=== PATIENT | female | born 1945 | race Asian ===

== ENCOUNTER 2016-07-14 10:57 | Inpatient (IN) | payer OTHER ==
[~2016-07-14] VITALS: Ht 165.1 cm; Wt 74.0 kg
[~2016-07-14 10:57] MED LIST: AMI200 PO; CARV25TA55 PO; COU2 PO; FURO-149 PO; FURO40SO5 PO; GLIM1TAB PO; GLIM1TAB2 PO; GLU500 PO; GLUXR500 PO; HYDR-1189 PO; LOVA10TA55 PO; MONT10TA22 PO; MONT10TA25 PO; VALS80TA2 PO; WARF1TAB2 PO; WARF2TAB2 PO
[2016-07-14 11:30] VITALS: BP 111/58; PULSE 72; RESP 16; TEMP 97; O2SAT 98
[2016-07-14 12:37] LABS: BASOPHILS # (AUTO) 0.1 K/uL (0.0-0.2); BASOPHILS % (AUTO) 0.7 % (0.0-2.0); EOSINOPHILS # (AUTO) 0.3 K/uL (0.0-0.4); HEMATOCRIT 34.4 % (36-48); HEMOGLOBIN 11.2 g/dL (12.0-16.0); LYMPHOCYTES # (AUTO) 1.6 K/uL (1.0-5.5); MEAN CORPUSCULAR HEMOGLOBIN 31 pg (27-31); MEAN CORPUSCULAR HGB CONC 33 % (32-36); MEAN CORPUSCULAR VOLUME 93 fL (79.0-98.0); MONOCYTES # (AUTO) 0.7 K/uL (0.0-1.0); MONOCYTES % (AUTO) 8.1 % (1.7-9.3); NEUTROPHILS % (AUTO) 70.2 % (40.0-70.0); PLATELET COUNT (AUTO) 249 K/uL (130-430); RED BLOOD CELL COUNT(AUTO) 3.69 MIL/uL (4.2-6.2); WHITE BLOOD COUNT (AUTO) 8.7 K/uL (4.8-10.8)
[2016-07-14 12:41] LABS: ANION GAP 6 (5-15); CHLORIDE 103 mmol/L (98-107); CREATININE 1.13 mg/dL (0.55-1.30); GLUCOSE 122 mg/dL (70-99); POTASSIUM 4.6 mmol/L (3.5-5.1); SODIUM SERUM 139 mmol/L (136-145); UREA NITROGEN, BLOOD 18 mg/dL (8-21)
[2016-07-14 12:46] LABS: ALANINE AMINOTRANSFERASE 63 U/L (12-78); ASPARTATE AMINOTRANSFERASE 46 U/L (10-37); TOTAL BILIRUBIN 0.3 mg/dL (0.0-1.0); TOTAL PROTEIN, SERUM 8.2 g/dL (6.4-8.3)
--- NOTE | 2016-07-14 12:50 | NUR ---
BROUGHT BACK TO BED #4 REPORT GIVEN TO MIYA
--- NOTE | 2016-07-14 13:00 | NUR ---
PT PRESENTS TO ED C/O NONHEALING WOUND LLE.PT H/O DM,HTN,AND AFIB.PT REPORTS WOUND CARE NOT EFFECTIVE.WOUND HAS YELLOW SLOUGH W/SLIGHT MACERATION AROUND EDGES,FOUL ORDOR NOTED.AFFECTED ARE COOL TO TOUCH WOUND APPROXIMATELY 13CM X 11CM. PT AFEBRILE,NO ACUTE DISTRESS NOTED.
--- NOTE | 2016-07-14 13:20 | NUR ---
SARAH EMBOSSING MACHINE OPERATOR HELPER AT BEDSIDE
--- NOTE | 2016-07-14 15:30 | NUR ---
# 22 gauge angiocath placed to L HAND. Use of asceptic technique. Opsite placed over site. Blood return noted. Flushed with 10 cc of normal saline. No evidence of infiltration noted. Patient tolerated well.
[2016-07-14] MEDS ORDERED: NS 500 ML IV SCH (15:33)
[2016-07-14] MEDS ORDERED: VANCOMYCIN HCL 1 MG in D5W 250 ML IV ONE (15:45)
[2016-07-14] MEDS ORDERED: MORPHINE 4 MG/ML INJ. SYRINGE IVP ONE (15:45)
[2016-07-14] MEDS ORDERED: PIPERACILLIN/TAZO 3.375 GM in NS 50 ML IV ONE (15:45)
[2016-07-14] MEDS ORDERED: ONDANSETRON HCL 4 MG/2 ML VIAL IVP ONE (15:45)
[2016-07-14] MEDS ORDERED: PIPERACILLIN/TAZOBACTAM 3.375 GM/VIAL (ZOSYN) IV ONE (15:59)
[2016-07-14] MEDS ORDERED: DIPH-TET-PERTUS Vaccine 0.5 ML VIAL (ADACEL) I.M. ONE (16:00)
[2016-07-14] MEDS ORDERED: VANCOMYCIN HCL 1000 MG/VIAL IV ONE (16:00)
--- NOTE | 2016-07-14 16:00 | NUR ---
Medication reconciliation completed with information provided by MIYA COE. Any prior medication reconciliation on file was reviewed and corrected.
--- NOTE | 2016-07-14 16:30 | NUR ---
PT MEDICATED PER ORDER.PT TOLERATED WELL.
[2016-07-14 16:41] LABS: PROTHROMBIN TIME 40.4 SECS (9.5-12.5)
[2016-07-14 16:42] LABS: INR 3.6 (0.8-1.2)
--- NOTE | 2016-07-14 17:00 | NUR ---
PT TOLERATED MEDICATED WELL.
[2016-07-14] MEDS ORDERED: ACETAMINOPHEN 325 MG TABLET PO PRN (17:45)
[2016-07-14] MEDS ORDERED: ONDANSETRON HCL 4 MG/2 ML VIAL IVP PRN (17:45)
[2016-07-14] MEDS ORDERED: VANCOMYCIN HCL 1,000 MG in NS 250 ML IV SCH (18:00)
--- NOTE | 2016-07-14 18:39 | NUR ---
ADMISSION NOTE Received patient from ER via gurney. Patient admitted with diagnosis of cellulitis. Patient is awake, alert, oriented X4. Patient oriented to hospital room, call light, toileting, pain management and safety-teach back done. Call light within reach.
--- NOTE | 2016-07-14 18:40 | NUR ---
Patient will be admitted to care of . Admitted to Med/Surg unit. Will go to room 119a. Summary report printed. Report given to Admission RN.
[2016-07-14 19:00] VITALS: BP 138/76; PULSE 61; RESP 16; TEMP 97.8; O2SAT 98
[2016-07-14 19:09] VITALS: BP 138/74; PULSE 61; RESP 18; TEMP 97.8; O2SAT 100
[2016-07-14 20:00] VITALS: BP 138/74; PULSE 61; RESP 18; TEMP 97.8; O2SAT 98
--- NOTE | 2016-07-14 20:41 | NUR ---
CONSULTATION PAGED REASON FOR CONSULTATION:ANTIBIOTICS MANAGEMENT WAS CONSULT CALLED?Y PERSON WHO WAS NOTIFIED:VARSHA CONSULTING PHYSICIAN:SYLVIA WEI PRESS DEPARTMENT MANAGER SPECIALTY:INFECTIOUS DISEASE PRESS DEPARTMENT MANAGER PHONE NUMBER:[phone]
[2016-07-14] MEDS ORDERED: *LOVENOX 1MG/KG Q12H/PHARMACY XX ONE (20:45)
--- NOTE | 2016-07-14 20:45 | NUR ---
CONSULTATION PAGED REASON FOR CONSULTATION:LEFT LEG WOUND EVAL WAS CONSULT CALLED?Y PERSON WHO WAS NOTIFIED:VARSHA CONSULTING PHYSICIAN:CARMEN SAUER (DAFNE BEAULIEU SCREEN REPAIRER CRUSHER) AIRLINE TICKET AGENT SPECIALTY:ORTHO AIRLINE TICKET AGENT PHONE NUMBER:[phone]
[2016-07-14] MEDS: ENOXAPARIN SODIUM 80 MG/0.8 ML SYRINGE SUBCUT SCH (21:00)
[2016-07-14] MEDS: CARVEDILOL 25 MG TABLET (COREG) PO SCH (21:49)
[2016-07-14] MEDS: CEFEPIME 2 GM in D5W 100 ML IV SCH (21:49)
[2016-07-14] MEDS: HYDROcodone/ACETAMIN 5-325 MG TAB (NORCO/ VICODIN) PO PRN (21:53)
--- NOTE | 2016-07-14 22:35 | NUR ---
MD RAO CALLED [facility] AT [phone]YASHAR MADDOX BEHZAD NUMERICAL CONTROL MACHINE OPERATOR.
[2016-07-15] VITALS: BP 95/50; PULSE 56; RESP 17; TEMP 97.3; O2SAT 96
[2016-07-15] MEDS: HYDROcodone/ACETAMIN 5-325 MG TAB (NORCO/ VICODIN) PO PRN ×2 (03:04→20:20)
[2016-07-15] MEDS: DIPHENHYDRAMINE HCL 25 MG CAPSULE PO PRN (03:08)
[2016-07-15 04:17] VITALS: BP 93/47; PULSE 58; RESP 17; TEMP 97.8; O2SAT 97
--- NOTE | 2016-07-15 06:57 | NUR ---
pt.was recieved via er-dept.07/13/16.pt.presents wound:lt.leg:lower region;daugherty.i ave pixed the wound,cleansed applied dsg i have administered pain medication;norco;1 tab x2.po.i have collected the mrsa swab;nares.i have administered the initial dose; vancomycin,cefipime..pt.presents diabetic hx;pt.stated she will submit to glucose assessment once in am:dr's order:achs.pt.' refused.pt.requested benadryl:itch,pt.is recieving coumadin @home.i telphoned [facility] i conveyed the pt's request. ordermoi bendryl:25mg po q-12hrs.hold lovenox:pt.refused.pt.dislikes shots.dr.nguyen aernas hold lovenox. pt.submitted to ct-scan leg:r/o abscess.i conveyed the results to zenobai armstrong,pt.requested t2 b attednde to in am:07/15/16 per .pt.is ambulatory.i assisted the pt.2 the restroom x3.
[2016-07-15 07:05] LABS: BASOPHILS % (AUTO) 0.7 % (0.0-2.0); EOSINOPHILS # (AUTO) 0.4 K/uL (0.0-0.4); EOSINOPHILS % (AUTO) 6.5 % (0.0-4.0); HEMATOCRIT 28.7 % (36-48); HEMOGLOBIN 9.2 g/dL (12.0-16.0); LYMPHOCYTES # (AUTO) 1.4 K/uL (1.0-5.5); MEAN CORPUSCULAR HEMOGLOBIN 30 pg (27-31); MEAN CORPUSCULAR HGB CONC 32 % (32-36); MEAN CORPUSCULAR VOLUME 94 fL (79.0-98.0); MONOCYTES # (AUTO) 0.8 K/uL (0.0-1.0); MONOCYTES % (AUTO) 11.5 % (1.7-9.3); NEUTROPHILS # (AUTO) 4.1 K/uL (1.8-7.7); NEUTROPHILS % (AUTO) 60.3 % (40.0-70.0); PLATELET COUNT (AUTO) 196 K/uL (130-430); RED BLOOD CELL COUNT(AUTO) 3.06 MIL/uL (4.2-6.2); RED CELL DISTRIBUTION WIDTH 14.8 % (9.0-15.0)
[2016-07-15 07:09] LABS: WHITE BLOOD COUNT (AUTO) 6.7 K/uL (4.8-10.8)
[2016-07-15 08:04] LABS: ERYTHROCYTE SEDIMENTATION RATE 87 MM/HR (0-20)
[2016-07-15 08:23] VITALS: BP 109/63; PULSE 58; RESP 16; TEMP 97.7; O2SAT 98
[2016-07-15 08:28] LABS: ANION GAP 13 (5-15); CALCIUM 8.5 mg/dL (8.4-11.0); CHLORIDE 101 mmol/L (98-107); CREATININE 2.47 mg/dL (0.55-1.30); GLUCOSE 167 mg/dL (70-99); PHOSPHORUS 4.1 mg/dL (2.7-4.5); POTASSIUM 4.8 mmol/L (3.5-5.1); SODIUM SERUM 137 mmol/L (136-145); UREA NITROGEN, BLOOD 21 mg/dL (8-21)
[2016-07-15] MEDS: ENOXAPARIN SODIUM 80 MG/0.8 ML SYRINGE SUBCUT SCH ×2 (09:00→20:18)
[2016-07-15] MEDS: CARVEDILOL 25 MG TABLET (COREG) PO SCH ×2 (09:00→20:21)
[2016-07-15] MEDS ORDERED: ENOXAPARIN SODIUM 40 MG/0.4 ML SYRINGE SUBCUT SCH (09:00)
[2016-07-15] MEDS: VALSARTAN 80 MG TABLET (DIOVAN) PO SCH (09:00)
[2016-07-15] MEDS: AMIODARONE HCL 200 MG TABLET PO SCH (09:00)
[2016-07-15] MEDS: CEFEPIME 2 GM in D5W 100 ML IV SCH ×2 (09:03→20:25)
[2016-07-15] MEDS: FUROSEMIDE 40 MG TABLET PO SCH (09:03)
[2016-07-15] MEDS: MONTELUKAST 10 MG TABLET PO SCH (09:04)
[2016-07-15 12:07] VITALS: BP 108/56; PULSE 62; RESP 16; TEMP 98.5; O2SAT 96
[2016-07-15] MEDS: FLUCONAZOLE 200 mg/ NS 100 ML IV SCH (12:16)
[2016-07-15] MEDS: LINEZOLID 300 ML IV SCH ×2 (14:46→21:33)
[2016-07-15 16:00] VITALS: BP 138/68; PULSE 69; RESP 18; TEMP 97.6; O2SAT 97
--- NOTE | 2016-07-15 19:04 | NUR ---
CONSULT: CONSULT FALLOWED UP WITH DR. FALL I SPOKE WITH MAXX KEE YESTERDAY DR. BROOKE LEOS CONVERTIBLE TOP INSTALLER BRIAN FALL IS CONVERTIBLE TOP INSTALLER CHARGE NURSE ASKED ME TO FALLOWED UP THIS CONSULT
[2016-07-15 19:30] VITALS: BP 138/71; PULSE 89; RESP 18; TEMP 97.7; O2SAT 95
--- NOTE | 2016-07-15 19:30 | NUR ---
Initial Notes Pt is A/Ox4. Pt is pleasant and cooperative. No acute distress or sob noted. POC discussed with pt, pt verbalized understanding. Dressing to left lower extremity noted, with some drainage. Pt stated that it is very painful, and does not want me to change dressing, will continue to monitor. VSS. IV to left hand #22g intact, saline lock. Safety precautions in place, side rails up x3, with bed in lowest, locked position, with bed alarm on. Pt educated subscription clerk light and correct back demonstration noted. All needs met at this time. Call light in reach. Will continue to monitor.
--- NOTE | 2016-07-15 20:15 | NUR ---
Spoke with MD Baird Spoke with MD Baird regarding consult ordered. Spoke with MD Baird regarding pt's wound to left lower leg, and informed MD ID consult, MD Araya had already seen pt and ordered antibiotics. MD Baird stated he would be in the morning tomorrow to see pt.
--- NOTE | 2016-07-15 20:20 | NUR ---
Pain Management Patient c/o pain 6/10 to left lower extremity where dressing is noted. Pt educated regarding pain management, and voiced understanding. Pt medicated with [place] 5-325mg PO 1 tab as ordered for moderate pain. No acute distress noted. Call light in reach. Will continue to monitor.
--- NOTE | 2016-07-15 20:22 | NUR ---
Medications/Pt refused dressing change Blood sugar checked, 143, no insulin coverage given per sliding scale. All scheduled medications administered as ordered. All questions answered. Spoke with pt and educated regarding changing dressing to her left lower leg, which noted to have some soilage, pt refused, stating "do not touch it, I dont want the dressing changed." Educated pt regarding wound care, but pt still refused. All needs met. Call light in hand. Will continue to monitor.
--- NOTE | 2016-07-15 20:35 | NUR ---
PAGED: I PAGED [facility] DR. POPE NYLON OPERATOR I SPOKE WITH AMANDO KEE
--- NOTE | 2016-07-15 20:44 | NUR ---
DR. POPE CALLED BACK @ [phone] HE SPOKE WITH NURSE IN CHARGE OF THIS PT
--- NOTE | 2016-07-15 20:50 | NUR ---
Spoke with MD Shah Pt requested that I call MD to ask regarding her Coumadin that she takes at home for her heart, as stated per pt. Pt stated she does not want to take "the shot" Lovenox. stated that Coumadin was held, and to encourage pt to take her Lovenox because it is a treatment dose. Also informed MD that pt takes metformin, Md stated that was held also. Educated pt regarding her medications held, and new medication Lovenox. Pt verbalized understanding.
--- NOTE | 2016-07-15 23:04 | NUR ---
Rounds Pt is sleeping comfortably at this time. No acute distress or sob noted. Safety measures in place. Call light in reach. Will continue to monitor closely.
[2016-07-16 00:46] VITALS: BP 96/50; PULSE 64; RESP 16; TEMP 97.4; O2SAT 94
--- NOTE | 2016-07-16 01:13 | NUR ---
Rounds Assisted pt to restroom at this time. No acute distress noted. Assisted pt back into bed safely. All needs met. Call light in reach. Will continue to monitor.
[2016-07-16 04:23] VITALS: BP 96/50; PULSE 56; RESP 16; TEMP 97.4; O2SAT 95
[2016-07-16] MEDS: HYDROcodone/ACETAMIN 5-325 MG TAB (NORCO/ VICODIN) PO PRN ×2 (05:22→16:01)
--- NOTE | 2016-07-16 05:22 | NUR ---
Pain Management/Dressing Pt c/o left lower leg pain to wound site, 11/15. Pt medicated with [place] 5-325mg PO 1 Tab for moderate pain. Pt refused dressing change to left lower leg, but agreed to have dressing reinforced. Pt in stable condition. IV intact. VSS. No acute distress or sob noted. Call light in reach. Will continue to monitor.
--- NOTE | 2016-07-16 06:29 | NUR ---
Closing Notes Pt is awake, alert and oriented. Pt in stable condition and denies any pain at this time. VSS. IV intact. All needs met throughout shift. Will endorse care to am nurse. Call light in hand. Will continue to monitor.
[2016-07-16 06:44] LABS: BASOPHILS # (AUTO) 0.1 K/uL (0.0-0.2); BASOPHILS % (AUTO) 0.9 % (0.0-2.0); EOSINOPHILS # (AUTO) 0.4 K/uL (0.0-0.4); EOSINOPHILS % (AUTO) 6.6 % (0.0-4.0); HEMATOCRIT 30.2 % (36-48); HEMOGLOBIN 9.9 g/dL (12.0-16.0); LYMPHOCYTES # (AUTO) 1.6 K/uL (1.0-5.5); LYMPHOCYTES % (AUTO) 25.4 % (20.5-51.5); MEAN CORPUSCULAR HEMOGLOBIN 31 pg (27-31); MEAN CORPUSCULAR HGB CONC 33 % (32-36); MEAN CORPUSCULAR VOLUME 94 fL (79.0-98.0); MONOCYTES # (AUTO) 0.8 K/uL (0.0-1.0); MONOCYTES % (AUTO) 12.2 % (1.7-9.3); NEUTROPHILS # (AUTO) 3.6 K/uL (1.8-7.7); NEUTROPHILS % (AUTO) 54.9 % (40.0-70.0); PLATELET COUNT (AUTO) 197 K/uL (130-430); RED BLOOD CELL COUNT(AUTO) 3.23 MIL/uL (4.2-6.2); RED CELL DISTRIBUTION WIDTH 14.4 % (9.0-15.0); WHITE BLOOD COUNT (AUTO) 6.5 K/uL (4.8-10.8)
[2016-07-16 07:04] LABS: INR 2.5 (0.8-1.2); PROTHROMBIN TIME 27.6 SECS (9.5-12.5)
--- NOTE | 2016-07-16 07:44 | NUR ---
PATIENT A/OX4. NO SIGNS OF DISTRESS NOTED. AMBULATORY. REFUSING DRESSING CHANGE AT THIS TIME. IV ON LEFT HAND, #22, SL. CALL LIGHT IN PLACE, BED AT LOWEST POSITION, WILL CONTINUE TO MONITOR.
[2016-07-16 08:09] LABS: ANION GAP 8 (5-15); CALCIUM 8.5 mg/dL (8.4-11.0); CHLORIDE 100 mmol/L (98-107); GLUCOSE 112 mg/dL (70-99); POTASSIUM 3.9 mmol/L (3.5-5.1); SODIUM SERUM 136 mmol/L (136-145); UREA NITROGEN, BLOOD 20 mg/dL (8-21)
[2016-07-16] MEDS: MONTELUKAST 10 MG TABLET PO SCH (08:37)
[2016-07-16] MEDS: AMIODARONE HCL 200 MG TABLET PO SCH (08:37)
[2016-07-16] MEDS: FUROSEMIDE 40 MG TABLET PO SCH (08:37)
[2016-07-16] MEDS: VALSARTAN 80 MG TABLET (DIOVAN) PO SCH (08:38)
[2016-07-16] MEDS: ENOXAPARIN SODIUM 80 MG/0.8 ML SYRINGE SUBCUT SCH ×2 (08:38→21:39)
[2016-07-16] MEDS: CEFEPIME 2 GM in D5W 100 ML IV SCH ×2 (08:41→21:20)
[2016-07-16] MEDS: CARVEDILOL 25 MG TABLET (COREG) PO SCH ×2 (09:00→21:39)
[2016-07-16] MEDS: MORPHINE 2 MG/ML INJ. SYRINGE IVP PRN (09:59)
--- NOTE | 2016-07-16 10:00 | NUR ---
pt alert. lives with spouse in 2 story home. has non-healing wound. + diabetic. plan home on iv abx and wound vac. will order meds from [facility] and [facility] [phone] for wound vac. will set up upon d/c. wet to dry drsg in hospital. pt aware of plan. f/u with dr dutton next Thursday/meena sarabia/damaso/[facility] [phone]
[2016-07-16 10:23] LABS: CREATININE 1.19 mg/dL (0.55-1.30)
[2016-07-16 12:00] VITALS: BP 124/62; PULSE 58; RESP 21; TEMP 98; O2SAT 97
--- NOTE | 2016-07-16 12:10 | NUR ---
Patient is eating lunch, without discomfort nor distress. Will continue to monitor.
[2016-07-16] MEDS: LINEZOLID 300 ML IV SCH ×2 (13:02→22:18)
--- NOTE | 2016-07-16 14:16 | NUR ---
Patient is escorted to bathroom, no distress noted.
[2016-07-16] MEDS: FLUCONAZOLE 200 mg/ NS 100 ML IV SCH (14:59)
[2016-07-16 16:00] VITALS: BP 124/63; PULSE 65; RESP 21; TEMP 98.1; O2SAT 99
--- NOTE | 2016-07-16 16:00 | NUR ---
PICC placed on the right upper arm. No signs of distress noted.
--- NOTE | 2016-07-16 16:30 | NUR ---
Wound Evaluation: Wound Consult received from Dr. Reis. Thank you, Dr. Reis, for the consult. Patient received in a [place] bed with an Atmos-Air 9000 mattress, awake, alert, oriented. Skin is poor. Patient is able to turn in bed and ambulate to the bathroom. Vu score is a 21. Past Medical History: Diabetes Mellitus, Hypertension, Ejection Fraction 47% and Diastolic Dysfunction, Hypothyroidism, chronic Left Leg non-healing Venous Stasis Ulcer, and bilateral knee surgeries. Recent labs: WBC 6.5, RBC 3.23, Hgb 9.9, Hct 30.2, ESR 87, Gluc 112, PT 27.6, INR 2.5, PTT 65.0. Intrinsic factors that delay wound healing: Diabetes Mellitus. Extrinsic factors that delay wound healing: Decreased mobility. MRSA Screen results negative. Wound Culture and Blood Culture results x 2 in progress. Wound Assessment: 1) Left Distal Lateral Lower Extremity: Non-healing wound, possible venous insufficiency ulcer, present on admission. Wound bed is 60% yellow tissue, 30% brown tissue, 10% pink tissue. Mild odor, scant yellow drainage. Scarlet-wound has dark discolor, and is elevated. Measures 12.6 cm x 11.4 cm. Continue with wet to dry dressing as ordered by Dr. Baird. Recommend: Cleanse wound with normal saline. Put moisture barrier cream onto scarlet-wound. Put Venelex ointment onto wound bed. Cover with foam dressings. Wrap with yoan wrap. Perform wound care daily, and as needed for dressing soiling or dislodgment. Also recommend: Encourage and assist patient as needed with repositioning every two hours with pillow support, and off-load pressure areas with pillows for pressure re-distribution. Offload, elevate and float heels with pillows. Perform skin care and monitor skin integrity q shift. Use moisture barrier cream on buttocks, and other moisture susceptible areas qid and as needed for soiling. Recommend surgical consult. Recommend Venous and Arterial Doppler to rule out Venous and Arterial Insufficiency. Spoke with Dr. Milan (loss prevention analyst for Dr. Baird), but he would not change Dr. Baird's orders.
--- NOTE | 2016-07-16 18:24 | NUR ---
Patient is eating dinner, no signs of distress noted.
[2016-07-16 19:50] VITALS: BP 126/79; PULSE 67; RESP 18; TEMP 98.7; O2SAT 100
--- NOTE | 2016-07-16 19:50 | NUR ---
Initial Notes Pt is A/Ox4. Pt is pleasant and cooperative. No acute distress or sob noted. POC discussed with pt, pt verbalized understanding. Dressing to left lower extremity noted, clean, dry and intact. Pt stated that it is very painful, and does not want me to change dressing, will continue to monitor. VSS. IV to left hand #22g intact, saline lock. Safety precautions in place, side rails up x3, with bed in lowest, locked position, with bed alarm on. Pt educated highway construction inspector light and correct back demonstration noted. All needs met at this time. Call light in reach. Will continue to monitor.
--- NOTE | 2016-07-16 22:30 | NUR ---
Rounds Pt is resting in bed. Pt denies any pain at this time. No acute distress noted. Call light in hand. Will continue to monitor.
[2016-07-17] VITALS (7 sets, daily range): BP systolic 101–132; BP diastolic 56–73; PULSE 54–72; RESP 16–18; TEMP 96.9–98.1; O2SAT 96–99
--- NOTE | 2016-07-17 00:15 | NUR ---
PATIENT RESTING: Patient resting quietly. No acute distress noted. Vital signs within normal range. Call light in hand. Will continue to monitor.
[2016-07-17] MEDS: DIPHENHYDRAMINE HCL 25 MG CAPSULE PO PRN ×2 (02:28→11:53)
[2016-07-17] MEDS: HYDROcodone/ACETAMIN 5-325 MG TAB (NORCO/ VICODIN) PO PRN (02:29)
--- NOTE | 2016-07-17 02:29 | NUR ---
Pain Management/Itching Pt c/o pain to left lower leg 6/10 and itchiness. Pt medicated with [place] 5-325mg 1 tab po for pain as ordered and benadry po for itching for itchiness. Pt in stable condition, awake. All needs met. Call light in hand. Will continue to monitor.
--- NOTE | 2016-07-17 04:27 | NUR ---
PATIENT RESTING: Patient resting quietly. No acute distress noted. Vital signs within normal range.
--- NOTE | 2016-07-17 06:27 | NUR ---
Closing Notes Pt refused blood sugar check at this time. Pt did not want me to change dressing to left lower extremity at this time. Pt is resting in bed. No acute distress or sob noted. IV intact. All needs met throughout shift. Will endorse care to am nurse.
[2016-07-17 06:28] LABS: EOSINOPHILS # (AUTO) 0.4 K/uL (0.0-0.4); MEAN CORPUSCULAR HEMOGLOBIN 30 pg (27-31); MEAN CORPUSCULAR HGB CONC 32 % (32-36); MEAN CORPUSCULAR VOLUME 94 fL (79.0-98.0)
[2016-07-17 06:36] LABS: LYMPHOCYTES # (AUTO) 1.6 K/uL (1.0-5.5)
[2016-07-17 06:41] LABS: BASOPHILS % (AUTO) 0.8 % (0.0-2.0); EOSINOPHILS % (AUTO) 7.8 % (0.0-4.0); HEMATOCRIT 29.3 % (36-48); HEMOGLOBIN 9.4 g/dL (12.0-16.0); LYMPHOCYTES % (AUTO) 28.9 % (20.5-51.5); MONOCYTES # (AUTO) 0.7 K/uL (0.0-1.0); MONOCYTES % (AUTO) 11.9 % (1.7-9.3); NEUTROPHILS % (AUTO) 50.6 % (40.0-70.0); PLATELET COUNT (AUTO) 199 K/uL (130-430); RED BLOOD CELL COUNT(AUTO) 3.13 MIL/uL (4.2-6.2); RED CELL DISTRIBUTION WIDTH 13.9 % (9.0-15.0); WHITE BLOOD COUNT (AUTO) 5.7 K/uL (4.8-10.8)
[2016-07-17 07:24] LABS: ALANINE AMINOTRANSFERASE 65 U/L (12-78); ALBUMIN 2.3 g/dL (3.4-4.8); ANION GAP 6 (5-15); ASPARTATE AMINOTRANSFERASE 50 U/L (10-37); CALCIUM 8.4 mg/dL (8.4-11.0); CHLORIDE 101 mmol/L (98-107); CREATININE 1.12 mg/dL (0.55-1.30); GLUCOSE 92 mg/dL (70-99); POTASSIUM 4.3 mmol/L (3.5-5.1); SODIUM SERUM 137 mmol/L (136-145); TOTAL BILIRUBIN 0.3 mg/dL (0.0-1.0); TOTAL PROTEIN, SERUM 6.8 g/dL (6.4-8.3); UREA NITROGEN, BLOOD 17 mg/dL (8-21)
--- NOTE | 2016-07-17 07:30 | NUR ---
rn notes: patient is aaox4. afebrile.vss stable. has picc line rt upper dry/intact. saline lock. lungs bilaterally clear. abdomen soft and non distended. left leg with dressing dry/intact. call lights within reach. safety measures maintained. has dressing on the left leg dry and intact. informed patient to call for assistance.
--- NOTE | 2016-07-17 09:00 | NUR ---
assisted to the bathroom.
--- NOTE | 2016-07-17 10:00 | NUR ---
dr bradley came and evaluate the patient.
[2016-07-17] MEDS: LINEZOLID 300 ML IV SCH (10:05)
[2016-07-17] MEDS: MONTELUKAST 10 MG TABLET PO SCH (10:05)
[2016-07-17] MEDS: CARVEDILOL 25 MG TABLET (COREG) PO SCH (10:06)
[2016-07-17] MEDS: FUROSEMIDE 40 MG TABLET PO SCH (10:06)
[2016-07-17] MEDS: VALSARTAN 80 MG TABLET (DIOVAN) PO SCH (10:07)
[2016-07-17] MEDS: AMIODARONE HCL 200 MG TABLET PO SCH (10:07)
--- NOTE | 2016-07-17 10:10 | NUR ---
due medication given as ordered. made comfortable.
[2016-07-17] MEDS: MORPHINE 2 MG/ML INJ. SYRINGE IVP PRN ×2 (11:09→17:34)
[2016-07-17] MEDS: CEFEPIME 2 GM in D5W 100 ML IV SCH (11:09)
[2016-07-17] MEDS: INSULIN ASPART 100 UNITS/ML, 10 ML VIAL (NovoLOG) SUBCUT PRN ×2 (11:46→17:25)
--- NOTE | 2016-07-17 12:00 | NUR ---
latest bs is 149mg/dl. no coverage given.
[2016-07-17] MEDS: ENOXAPARIN SODIUM 80 MG/0.8 ML SYRINGE SUBCUT SCH (13:40)
--- NOTE | 2016-07-17 14:00 | NUR ---
watching tv. voiding at the bedside commode.
[2016-07-17] MEDS: FLUCONAZOLE 200 mg/ NS 100 ML IV SCH (16:21)
--- NOTE | 2016-07-17 17:00 | NUR ---
jeff from [facility] called regarding iv antibiotic will be brought tonite.l
--- NOTE | 2016-07-17 17:26 | NUR ---
latest bs is 102 mg/dl. no coverage given.
--- NOTE | 2016-07-17 18:10 | NUR ---
dressing changed on the left leg. with cleanse normal saline.and photos taken. reddish drainage. with pus on it. but no odor noted.
--- NOTE | 2016-07-17 18:57 | NUR ---
patient much stable. awaiting for the son and daughter to [employer] for home discharge.discharge documents done. still with picc line on the rt upper picc line.
--- NOTE | 2016-07-17 19:25 | NUR ---
sbar report given to incoming nurse Kathya PLATT
--- NOTE | 2016-07-17 19:50 | NUR ---
D/C Patient Patient given medication reconciliation form and D/C instructions. D/C also discussed with pt's on at bedside. Exit Care provided. Patient verbalized understanding. MD discussed with patient the results and treatment provided. Ambulatory with steady gait for discharge to home. Patient in stable condition, ID band removed. Pt discharged with PICC line as ordere for AX. Pt informed that she will continue to received wound care at home and antibiotics with home health nurse. Patient educated on pain management. All belongings sent with patient.
--- NOTE | 2016-07-21 15:12 | NUR ---
Discharge Follow Up Phone Call: [employer] DEVEL[employer] called pt ([phone]) and pt's dtr answered the phone. Pt's dtr states that pt is not doing well due to pt experiencing vomiting and diarrhea. Pt went to PCP follow up appointment today and home health nurse visited pt today. Pt's Mihir Big Data Admin, Ludmila, told pt's dtr to take pt to urgent care so that is what pt's dtr is going to do. Pt's dtr did not express any questions regarding pt's discharge or medication instructions. Pt checks her blood sugar as directed by PCP. Pt's dtr did not express any other needs or concerns and denied the need for additional follow up at this time. No further follow up phone calls required at this time.
== END 2016-07-17 19:50 | disposition home or self-care (01) | DRG 638 ==
LOC: SED 10:57 → SMU 17:33
PROVIDERS: ADMIT Internal Medicine; ATTEND Internal Medicine
PROC: 02HV33Z Insertion of Infusion Device into Superior Vena Cava, Percutaneous Approach (ICD-10-PCS; principal; 2016-07-16)
PROC: B548ZZA Ultrasonography of Superior Vena Cava, Guidance (ICD-10-PCS; 2016-07-16)
DX: E11.622 Type 2 diabetes mellitus with other skin ulcer (principal); L03.116 Cellulitis of left lower limb; L97.829 Non-pressure chronic ulcer of other part of left lower leg with unspecified severity; I42.9 Cardiomyopathy, unspecified; N17.9 Acute kidney failure, unspecified; I10 Essential (primary) hypertension; I87.8 Other specified disorders of veins; I27.2 Other secondary pulmonary hypertension; E03.9 Hypothyroidism, unspecified; D63.8 Anemia in other chronic diseases classified elsewhere; E78.5 Hyperlipidemia, unspecified; I48.0 Paroxysmal atrial fibrillation; Z91.011 Allergy to milk products; Z22.322 Carrier or suspected carrier of Methicillin resistant Staphylococcus aureus; Z79.01 Long term (current) use of anticoagulants; Z79.899 Other long term (current) drug therapy; N17.0 Acute kidney failure with tubular necrosis
CPT/HCPCS: 36415; 71010; 73590-TC; 73700-TC; 80048; 80053; 82962; 83735-TC; 84100-TC; 85025; 85610-TC; 85651-TC; 85730-TC; 87040-TC; 87070-TC; 87081; 87186-TC; 90715; 96365; 96375; 99285; C1751; J0692; J1450; J1650; J1815; J2020; J2270; J2405; J2543; J3370; J7050; J7060; Q0163

== ENCOUNTER 2016-09-22 08:37 | Day surgery (SDC) | payer OTHER ==
[~2016-09-22] VITALS: Ht 165.1 cm; Wt 72.6 kg
[~2016-09-22 08:37] MED LIST changes: +CEFAZOLIN 1 GM IVPB PREMIX 50 ML IV ONE; -COU2 PO; -FURO-149 PO; -GLIM1TAB PO; -GLIM1TAB2 PO; -GLUXR500 PO; -MONT10TA25 PO; -WARF1TAB2 PO
[2016-09-22 09:14] LABS: INR 1.4 (0.8-1.2); PROTHROMBIN TIME 15.3 SECS (9.5-12.5)
[2016-09-22] MEDS ORDERED: LR 1,000 ML IV SCH (12:37)
[2016-09-22] MEDS ORDERED: MEPERIDINE HCL/PF 25 MG/ML DISP.SYRIN IVP PRN (12:45)
[2016-09-22] MEDS ORDERED: ONDANSETRON HCL 4 MG/2 ML VIAL IVP PRN (12:45)
[2016-09-22] MEDS ORDERED: D5/0.45 NS 1,000 ML IV SCH (13:50)
[2016-09-22] MEDS ORDERED: HYDROmorphone 1 MG INJ. 1 MG/ML AMPUL IVP PRN (14:00)
[2016-09-22] MEDS ORDERED: MIDAZOLAM HCL 5 MG/5 ML VIAL ONE (14:00)
[2016-09-22] MEDS ORDERED: fentaNYL CITRATE/PF 100 MCG/2 ML AMP ONE (14:00)
[2016-09-22] MEDS ORDERED: HYDROcodone/ACETAMIN 5-325 MG TAB (NORCO/ VICODIN) PO PRN ×2 (14:00)
[2016-09-22] MEDS ORDERED: ONDANSETRON HCL 4 MG/2 ML VIAL ONE (14:00)
[2016-09-22] MEDS ORDERED: SEVOFLURANE 15 MIN GAS INH ONE (14:00)
[2016-09-22] MEDS ORDERED: MINERAL OIL 30 ML UDC ONE (14:00)
[2016-09-22] MEDS ORDERED: METOPROLOL TARTRATE 5 MG/5 ML VIAL ONE (14:00)
[2016-09-22] MEDS ORDERED: NS IRRIG SOLN 1000 ML IR ONE (14:00)
[2016-09-22] MEDS ORDERED: PROPOFOL 200MG/ 20ML VIAL (DIPRIVAN) IV ONE (14:00)
[2016-09-22] MEDS: MEPERIDINE HCL/PF 25 MG/ML DISP.SYRIN IVP PRN ×2 (14:12→14:45)
[2016-09-22] MEDS ORDERED: MEPERIDINE HCL/PF 25 MG/ML DISP.SYRIN ONE ×2 (14:16→14:49)
[2016-09-22 15:05] VITALS: BP_SYST 117
[2016-09-22] MEDS ORDERED: ACETAMINOPHEN 500 MG TABLET PO ONE (15:30)
[2016-09-22] MEDS ORDERED: ACETAMINOPHEN 500 MG TABLET ONE (15:36)
== END 2016-09-22 16:50 | disposition home or self-care (01) ==
LOC: SDS 08:37 → SMU 08:38 → SDS 16:50
PROVIDERS: ATTEND Colon & Rectal Surgery
DX: L98.499 Non-pressure chronic ulcer of skin of other sites with unspecified severity (principal)
CPT/HCPCS: 15100; 15101; 36415; 82962; 85610; 85730; J0690; J2175; J2250; J2405; J2704; J3010; J3490; J7120